=== PATIENT | male | born 1995 | race Caucasian/White ===

== ENCOUNTER 2018-08-06 10:09 | Emergency (ER) | payer SELFPAY ==
[2018-08-06] MEDS ORDERED: LIDOCAINE 1% MPF 2 ML AMPULE ONE (11:20)
--- NOTE | 2018-08-06 11:53 | EDPHYS ---
Physician Documentation [facility] Name: Judson Dunlap Age: 23 yrs Sex: Male : 1995 Arrival Date: 08/06/2018 Time: 10:09 Bed 23 Private MD: ED Physician Stephen Barnes HPI: 08/06 11:12 This 23 yrs old Male presents to ER via Ambulatory with complaints of Lip kb Injury. 11:12 The patient has a laceration related to: working, from a sharp metal object, occurred kb at work, and there are no complicating factors. The injury was accidental. The laceration(s) is(are) located on the philtrum. Onset: The symptoms/episode began/occurred just prior to arrival. Associated signs and symptoms: The patient has no apparent associated signs or symptoms. The patient has not experienced similar symptoms in the past. The patient has not recently seen a physician. Pt was pulling on a wrench, it slipped and hit him in the face. 2cm laceration above upper lip. Historical: - Allergies: 10:30 No Known Allergies; aj1 - Home Meds: 10:30 None [Active]; aj1 - PMHx: 10:30 None; aj1 - PSHx: 10:30 None; aj1 - Immunization history: Last tetanus immunization: < 5 years ago. - Social history:: Smoking status: Patient uses tobacco products, smokes one-half pack cigarettes per day. - Ebola Screening: : Patient denies travel to an Ebola-affected area in the 21 days before illness onset. ROS: 11:12 Constitutional: Negative for fever, chills, and weight loss, Cardiovascular: Negative kb for chest pain, palpitations, and edema, Respiratory: Negative for shortness of breath, cough, wheezing, and pleuritic chest pain, Abdomen/GI: Negative for abdominal pain, nausea, vomiting, diarrhea, and constipation, Back: Negative for injury and pain, MS/Extremity: Negative for injury and deformity, Neuro: Negative for headache, weakness, numbness, tingling, and seizure. 11:12 Skin: Positive for laceration(s). Exam: 11:12 Constitutional: This is a well developed, well nourished patient who is awake, alert, kb and in no acute distress. Head/Face: Normocephalic, atraumatic. Chest/axilla: Normal chest wall appearance and motion. Nontender with no deformity. No lesions are appreciated. Cardiovascular: Regular rate and rhythm with a normal S1 and S2. No gallops, murmurs, or rubs. Normal PMI, no JVD. No pulse deficits. Respiratory: Lungs have equal breath sounds bilaterally, clear to auscultation and percussion. No rales, rhonchi or wheezes noted. No increased work of breathing, no retractions or nasal flaring. Abdomen/GI: Soft, non-tender, with normal bowel sounds. No distension or tympany. No guarding or rebound. No evidence of tenderness throughout. MS/ Extremity: Pulses equal, no cyanosis. Neurovascular intact. Full, normal range of motion. Neuro: Awake and alert, GCS 15, oriented to person, place, time, and situation. Cranial nerves II-XII grossly intact. Motor strength 5/5 in all extremities. Sensory grossly intact. Cerebellar exam normal. Normal gait. 11:12 Skin: injury, laceration(s), the wound is approximately 2 cm(s), that can be described as clean, no foreign body, linear, without bleeding. Vital Signs: 10:27 BP 129 / 69; Pulse 70; Resp 18; Temp 97.2; Pulse Ox 97% on R/A; Weight 92.99 kg (R); aj1 Height 5 ft. 10 in. (177.80 cm) (R); Pain 0/10; 10:27 Body Mass Index 29.41 (92.99 kg, 177.80 cm) aj1 Joseph Coma Score: 10:27 Eye Response: spontaneous(4). Verbal Response: oriented(5). Motor Response: obeys aj1 commands(6). Total: 15. Trauma Score (Adult): 10:27 Eye Response: spontaneous(1); Verbal Response: oriented(1); Motor Response: obeys aj1 commands(2); Systolic BP: > 89 mm Hg(4); Respiratory Rate: 10 to 29 per min(4); Joseph Score: 15; Trauma Score: 12 Laceration: 11:53 Wound Repair of 2cm ( 0.8in ) subcutaneous laceration to philtrum. Linear shaped.. kb Distal neuro/vascular/tendon intact. Anesthesia: Wound infiltrated with 1.5 mls of 1% lidocaine. Wound prep: Moderate cleansing, Wound irrigation with saline by me. Skin closed with 3 6-0 Prolene using interrupted sutures and sterile technique. Dressed with Neosporin. Patient tolerated well. MDM: 10:59 Patient medically screened. kb 11:15 Data reviewed: vital signs, nurses notes. Data interpreted: Pulse oximetry: on room air kb is 97 %. Interpretation: normal. Counseling: I had a detailed discussion with the patient and/or guardian regarding: the historical points, exam findings, and any diagnostic results supporting the discharge/admit diagnosis, the need for outpatient follow up, a family practitioner, to return to the emergency department if symptoms worsen or persist or if there are any questions or concerns that arise at home. 08/06 11:10 Order name: Prolene, Sutures; Complete Time: 11:14 kb 08/06 11:10 Order name: Dressing - Wound; Complete Time: 11:42 kb 08/06 11:10 Order name: Gloves, Sterile; Complete Time: 11:15 kb 08/06 11:10 Order name: Setup Suture Tray; Complete Time: 11:15 kb Administered Medications: 11:41 Drug: Lidocaine (1 %) 1 vials {Note: by SHRUTHI Jin at this time..} Volume: 5 ml; tw2 Route: Infiltration; Disposition: 14:08 Co-signature as Attending Physician, Stephen Barnes MD. rn Disposition: 08/06/18 11:52 Discharged to Home. Impression: Laceration without foreign body of lip. - Condition is Stable. - Discharge Instructions: Facial Laceration, [id number]. - Medication Reconciliation Form, Thank You Letter, Antibiotic Education, Prescription Opioid Use, Work release form form. - Follow up: Emergency Department; When: As needed; Reason: Worsening of condition. Follow up: Private Physician; When: 2 - 3 days; Reason: Recheck today's complaints, Continuance of care, Re-evaluation by your physician. Signatures: Xiomara Aguilar FNP-C FNP-Kellen Sawyer RN RN aj1 Stephen Barnes MD MD rn Wise, Tara, RN RN tw2 Corrections: (The following items were deleted from the chart) 12:00 11:52 08/06/2018 11:52 Discharged to Home. Impression: Laceration without foreign body tw2 of lip. Condition is Stable. Discharge Instructions: Facial Laceration, [id number]. Forms are Work release form, Medication Reconciliation Form, Thank You Letter, Antibiotic Education, Prescription Opioid Use. Follow up: Emergency Department; When: As needed; Reason: Worsening of condition. Follow up: Private Physician; When: 2 - 3 days; Reason: Recheck today's complaints, Continuance of care, Re-evaluation by your physician. kb
--- NOTE | 2018-08-06 11:53 | ER ---
Nurse's Notes [facility] Name: Judson Dunlap Age: 23 yrs Sex: Male : 1995 Arrival Date: 08/06/2018 Time: 10:09 Bed 23 Private MD: Diagnosis: Laceration without foreign body of lip Presentation: 08/06 10:27 Presenting complaint: Patient states: "I was pulling back on a wrench and it went up aj1 and hit my lip. When I felt in my mouth I could feel that it went all the way through" Laceration noted to right upper lip, bleeding lightly. Care prior to arrival: None. Mechanism of Injury: hit his face with a wrench. Trauma event details: Injury occurred in the [facility]. 10:27 Acuity: LIZETTE 4 aj1 10:27 Method Of Arrival: Ambulatory aj1 10:30 Transition of care: patient was not received from another setting of care. Onset of aj1 symptoms was August 06, 2018 at 10:00. Risk Assessment: Do you want to hurt yourself or someone else? Patient reports no desire to harm self or others. Initial Sepsis Screen: Does the patient meet any 2 criteria? No. Patient's initial sepsis screen is negative. Does the patient have a suspected source of infection? No. Patient's initial sepsis screen is negative. Triage Assessment: 10:30 General: Appears in no apparent distress. comfortable, Behavior is calm, cooperative, aj1 appropriate for age. Pain: Denies pain. Neuro: Level of Consciousness is awake, alert, obeys commands. Cardiovascular: Patient's skin is warm and dry. Respiratory: Airway is patent Respiratory effort is even, unlabored, Respiratory pattern is regular, symmetrical. Injury Description: Laceration sustained to right upper lip a small amount of bleeding noted at this time. Trauma Activation: Not Applicable Physician: ED Physician; Name: ; Notified At: ; Arrived At: Physician: General Surgeon; Name: ; Notified At: ; Arrived At: Physician: Radiology; Name: ; Notified At: ; Arrived At: Physician: Respiratory; Name: ; Notified At: ; Arrived At: Physician: Lab; Name: ; Notified At: ; Arrived At: Historical: - Allergies: 10:30 No Known Allergies; aj1 - Home Meds: 10:30 None [Active]; aj1 - PMHx: 10:30 None; aj1 - PSHx: 10:30 None; aj1 - Immunization history: Last tetanus immunization: < 5 years ago. - Social history:: Smoking status: Patient uses tobacco products, smokes one-half pack cigarettes per day. - Ebola Screening: : Patient denies travel to an Ebola-affected area in the 21 days before illness onset. Screenin:27 Abuse screen: Denies threats or abuse. Denies injuries from another. Tuberculosis aj1 screening: No symptoms or risk factors identified. 11:32 Nutritional screening: No deficits noted. Fall Risk None identified. tw2 Primary Survey: 10:27 A: Airway: patent. Breathing/Chest: Respiratory pattern: regular, Respiratory effort: aj1 spontaneous, unlabored. Circulation: Skin color: pink. Disability Alert. Assessment: 11:03 Reassessment:. tw2 11:32 General: Appears in no apparent distress. Behavior is calm, cooperative, appropriate tw2 for age. Neuro: Level of Consciousness is awake, alert, obeys commands, Oriented to person, place, time, situation. Cardiovascular: Denies chest pain, shortness of breath, Capillary refill < 3 seconds Patient's skin is warm and dry. Respiratory: Airway is patent Respiratory effort is even, unlabored, Respiratory pattern is regular, symmetrical. GI: No signs and/or symptoms were reported involving the gastrointestinal system. : No signs and/or symptoms were reported regarding the genitourinary system. EENT: No signs and/or symptoms were reported regarding the EENT system. Derm: No signs and/or symptoms reported regarding the dermatologic system. Musculoskeletal: Range of motion: intact in all extremities. Injury Description: Laceration sustained to philtrum a small amount of bleeding noted at this time. 11:59 Reassessment: Patient appears in no apparent distress at this time. No changes from tw2 previously documented assessment. Patient and/or family updated on plan of care and expected duration. Pain level reassessed. Patient is alert, oriented x 3, equal unlabored respirations, skin warm/dry/pink. Vital Signs: 10:27 BP 129 / 69; Pulse 70; Resp 18; Temp 97.2; Pulse Ox 97% on R/A; Weight 92.99 kg (R); aj1 Height 5 ft. 10 in. (177.80 cm) (R); Pain 0/10; 10:27 Body Mass Index 29.41 (92.99 kg, 177.80 cm) aj1 [place] Coma Score: 10:27 Eye Response: spontaneous(4). Verbal Response: oriented(5). Motor Response: obeys aj1 commands(6). Total: 15. Trauma Score (Adult): 10:27 Eye Response: spontaneous(1); Verbal Response: oriented(1); Motor Response: obeys aj1 commands(2); Systolic BP: > 89 mm Hg(4); Respiratory Rate: 10 to 29 per min(4); Joseph Score: 15; Trauma Score: 12 ED Course: 10:09 Patient arrived in ED. as 10:27 Patient has correct armband on for positive identification. aj1 10:27 Patient maintains SpO2 saturation greater than 95% on room air. aj1 10:28 Triage completed. aj1 10:30 Arm band placed on Patient placed in waiting room, Patient notified of wait time. aj1 10:59 [facility] kb 10:59 Stephen Barnes MD is Attending Physician. kb 11:03 Fatemeh Dick, DINA is Primary Nurse. tw2 11:59 No provider procedures requiring assistance completed. Patient did not have IV access tw2 during this emergency room visit. Administered Medications: 11:41 Drug: Lidocaine (1 %) 1 vials {Note: by SHRUTHI Jin at this time..} Volume: 5 ml; tw2 Route: Infiltration; Outcome: 11:52 Discharge ordered by MD. kb 11:59 Discharged to home ambulatory. tw2 11:59 Condition: stable 11:59 Discharge instructions given to patient, Instructed on discharge instructions, follow up and referral plans. wound care, Demonstrated understanding of instructions, follow-up care, wound care, suture removal 7-10 days 12:00 Patient left the ED. tw2 Signatures: Xiomara Aguilar FNP-C FNP-Kellen Sawyer RN RN aj1 Rosa Crowe as Fatemeh Dick RN RN tw2
== END 2018-08-06 12:00 | disposition home or self-care (01) ==
LOC: ER 10:09
PROC: 0CQ0XZZ Repair Upper Lip, External Approach (ICD-10-PCS; principal; 2018-08-06)
DX: S01.511A Laceration without foreign body of lip, initial encounter (principal); W22.8XXA Striking against or struck by other objects, initial encounter; Y93.89 Activity, other specified; Y92.89 Other specified places as the place of occurrence of the external cause; Y99.8 Other external cause status; F17.210 Nicotine dependence, cigarettes, uncomplicated
CPT/HCPCS: 99284; J2001

== ENCOUNTER 2019-11-29 11:00 | Emergency (ER) | payer SELFPAY ==
[2019-11-29] MEDS ORDERED: TRAMADOL HCL 50 MG TAB ONE (12:12)
--- NOTE | 2019-11-29 12:29 | RAD REPORT ---
EXAM DESCRIPTION: RAD - Hand Right 3 View - 11/29/2019 11:55 am CLINICAL HISTORY: PAIN COMPARISON: No comparisons FINDINGS: Soft tissue swelling is seen along the dorsum of the hand. No fracture seen.
--- NOTE | 2019-11-29 12:33 | ER ---
Nurse's Notes [facility] Name: Judson Dunlap Age: 24 yrs Sex: Male : 1995 Arrival Date: 11/29/2019 Time: 11:01 Bed 18 Private MD: Diagnosis: Contusion of right hand Presentation: 11/28 11:13 Chief complaint: Patient states: punched a wall, hit the stud with right hand , iw occurred yesterday afternoon , pain and swelling to right hand. Coronavirus screen: The patient has NOT traveled to [place] in the past 14 days. Proceed with normal triage procedures. Ebola Screen: Patient negative for fever greater than or equal to 101.5 degrees Fahrenheit, and additional compatible Ebola Virus Disease symptoms Patient denies exposure to infectious person. Patient denies travel to an Ebola-affected area in the 21 days before illness onset. No symptoms or risks identified at this time. Initial Sepsis Screen: Does the patient meet any 2 criteria? No. Patient's initial sepsis screen is negative. Does the patient have a suspected source of infection? No. Patient's initial sepsis screen is negative. Risk Assessment: Do you want to hurt yourself or someone else? Patient reports no desire to harm self or others. 11:13 Method Of Arrival: Ambulatory iw 11:13 Acuity: LIZETTE 4 iw Historical: - Allergies: 11:15 No Known Allergies; iw - Home Meds: 11:15 None [Active]; iw - PMHx: 11:15 None; iw - PSHx: 11:15 None; iw - Immunization history:: Adult Immunizations. - Social history:: Smoking status: Patient reports the use of cigarette tobacco products. Screenin:30 Abuse screen: Denies threats or abuse. Denies injuries from another. Nutritional jl7 screening: No deficits noted. Tuberculosis screening: No symptoms or risk factors identified. Fall Risk None identified. Assessment: 11:30 General: Appears in no apparent distress. uncomfortable, Behavior is calm, cooperative, jl7 appropriate for age. Pain: Complains of pain in right hand Pain currently is 9 out of 10 on a pain scale. Pain began 1 day ago. Is continuous. Neuro: Level of Consciousness is awake, alert, obeys commands, Oriented to person, place, time, situation. Cardiovascular: Patient's skin is warm and dry. Respiratory: Airway is patent Respiratory effort is even, unlabored, Respiratory pattern is regular, symmetrical. Derm: Skin is pink, warm \T\ dry. Musculoskeletal: Swelling present in right hand. 12:45 Reassessment: pt will be discharged after splint is done. jl7 Vital Signs: 11:13 BP 120 / 76; Pulse 85; Resp 16; Temp 98.0; Pulse Ox 100% on R/A; Weight 95.25 kg; iw Height 5 ft. 11 in. (180.34 cm); Pain 9/10; 11:13 Body Mass Index 29.29 (95.25 kg, 180.34 cm) iw ED Course: 11:01 Patient arrived in ED. as 11:15 Triage completed. iw 11:15 Arm band placed on. iw 11:17 Mary Carmen Lemus RN is Primary Nurse. jl7 11:23 Keith Berrios NP is PHCP. pm1 11:23 Hubert Herman MD is Attending Physician. pm1 11:30 Patient has correct armband on for positive identification. Bed in low position. Call jl7 light in reach. Side rails up X 1. 11:55 Hand Right 3 View XRAY In Process Unspecified. EDMS 13:15 Orthoglass splint and sling applied to right hand. jl7 13:20 Patient did not have IV access during this emergency room visit. jl7 Administered Medications: 12:20 Drug: traMADol 50 mg Route: PO; jl7 13:00 Follow up: Response: No adverse reaction jl7 Outcome: 12:32 Discharge ordered by . pm1 13:20 Discharged to home ambulatory. jl7 13:20 Condition: stable 13:20 Discharge instructions given to patient, Instructed on discharge instructions, follow up and referral plans. medication usage, Demonstrated understanding of instructions, follow-up care, medications, Prescriptions given X 1. 13:36 Patient left the ED. jl7 Signatures: Dispatcher [employer] Rosa Barber Irene, RN RN Keith Berrios, [employer]MAN INTERACTIVE MEDIA DIRECTOR pm1 Mary Carmen Lemus RN RN jl7
--- NOTE | 2019-11-29 12:33 | EDPHYS ---
Physician Documentation [facility] Name: Judson Dunlap Age: 24 yrs Sex: Male : 1995 Arrival Date: 11/29/2019 Time: 11:01 Bed 18 Private MD: ED Physician Hubert Herman HPI: 11/28 12:17 This 24 yrs old Male presents to ER via Ambulatory with complaints of Right pm1 Hand Injury. 12:17 The patient or guardian reports pain, swelling, tenderness. The complaints affect the pm1 right hand. Context: The problem was sustained at home, resulted from using own fist to strike, a wall. Onset: The symptoms/episode began/occurred yesterday. Modifying factors: The symptoms are alleviated by nothing, the symptoms are aggravated by movement. Associated signs and symptoms: Pertinent negatives: cyanosis distally, decreased sensation distally, numbness distally, tingling distally. Severity of symptoms: in the emergency department the symptoms are unchanged. The patient has not experienced similar symptoms in the past. It is unknown whether or not the patient has recently seen a physician. Historical: - Allergies: 11:15 No Known Allergies; iw - Home Meds: 11:15 None [Active]; iw - PMHx: 11:15 None; iw - PSHx: 11:15 None; iw - Immunization history:: Adult Immunizations. - Social history:: Smoking status: Patient reports the use of cigarette tobacco products. ROS: 12:17 Constitutional: Negative for fever, chills, and weight loss, Cardiovascular: Negative pm1 for chest pain, palpitations, and edema, Respiratory: Negative for shortness of breath, cough, wheezing, and pleuritic chest pain. 12:17 Skin: Negative for injury, rash, and discoloration, Neuro: Negative for headache, weakness, numbness, tingling, and seizure. 12:17 MS/extremity: Positive for pain, swelling, tenderness, of the medial aspect of right hand, 4th and 5th metacarpal area, Negative for decreased range of motion. 12:17 All other systems are negative. Exam: 12:17 Constitutional: This is a well developed, well nourished patient who is awake, alert, pm1 and in no acute distress. Head/Face: Normocephalic, atraumatic. Chest/axilla: Normal chest wall appearance and motion. Nontender with no deformity. No lesions are appreciated. Cardiovascular: Regular rate and rhythm with a normal S1 and S2. No gallops, murmurs, or rubs. No pulse deficits. Respiratory: Lungs have equal breath sounds bilaterally, clear to auscultation and percussion. No rales, rhonchi or wheezes noted. No increased work of breathing, no retractions or nasal flaring. Skin: Warm, dry with normal turgor. Normal color with no rashes, no lesions, and no evidence of cellulitis. 12:17 Musculoskeletal/extremity: Extremities: grossly normal except: noted in the medial aspect of right hand, 4th and 5th metacarpals: swelling, tenderness, There is no evidence of abrasion, puncture, ROM: intact in all extremities, Circulation is intact in all extremities. Sensation intact. 12:17 Neuro: Orientation: is normal, Motor: is normal, moves all fours. Vital Signs: 11:13 BP 120 / 76; Pulse 85; Resp 16; Temp 98.0; Pulse Ox 100% on R/A; Weight 95.25 kg; iw Height 5 ft. 11 in. (180.34 cm); Pain 9/10; 11:13 Body Mass Index 29.29 (95.25 kg, 180.34 cm) iw MDM: 11:23 Patient medically screened. pm1 12:22 Data reviewed: vital signs. Data interpreted: Pulse oximetry: on room air is 100 %. pm1 Interpretation: normal. 12:32 Counseling: I had a detailed discussion with the patient and/or guardian regarding: the pm1 historical points, exam findings, and any diagnostic results supporting the discharge/admit diagnosis, radiology results, the need for outpatient follow up, to return to the emergency department if symptoms worsen or persist or if there are any questions or concerns that arise at home. 13:50 ED course: PMPAware - no history of prescription pain medication. pm1 11/28 11:24 Order name: Hand Right 3 View XRAY; Complete Time: 12:31 pm1 11/28 12:17 Order name: Splint - Ulnar Gutter pm1 Administered Medications: 12:20 Drug: traMADol 50 mg Route: PO; jl7 13:00 Follow up: Response: No adverse reaction jl7 Disposition: 18:18 Co-signature as Attending Physician, Hubert Herman MD I agree with the assessment and wali plan of care. Disposition: 11/29/19 12:32 Discharged to Home. Impression: Contusion of right hand. - Condition is Stable. - Discharge Instructions: Cast or Splint Care, Adult, Hand Contusion. - Prescriptions for Tramadol 50 mg Oral Tablet - take 1 tablet by ORAL route every 8 hours as needed; 12 tablet. - Medication Reconciliation Form, Thank You Letter, Antibiotic Education, Prescription Opioid Use form. - Follow up: Emergency Department; When: As needed; Reason: Worsening of condition. Follow up: Private Physician; When: 2 - 3 days; Reason: Recheck today's complaints, Continuance of care, Re-evaluation by your physician. - Problem is new. - Symptoms have improved. Signatures: Dispatcher [employer] EDOK Hubert Herman MD MD cha Williams, Irene, RN RN iw Keith Berrios NP [employer]IMMER pm1 Mary Carmen Lemus RN RN jl7 Corrections: (The following items were deleted from the chart) 13:36 12:32 11/29/2019 12:32 Discharged to Home. Impression: Contusion of right hand. jl7 Condition is Stable. Forms are Medication Reconciliation Form, Thank You Letter, Antibiotic Education, Prescription Opioid Use. Follow up: Emergency Department; When: As needed; Reason: Worsening of condition. Follow up: Private Physician; When: 2 - 3 days; Reason: Recheck today's complaints, Continuance of care, Re-evaluation by your physician. Problem is new. Symptoms have improved. pm1
[2019-11-29 13:42] VITALS: BP 120/76; TEMP 98; O2SAT 100
== END 2019-11-29 13:36 | disposition home or self-care (01) ==
LOC: ER 11:00
PROC: 2W3CX1Z Immobilization of Right Lower Arm using Splint (ICD-10-PCS; principal; 2019-11-29)
DX: S60.221A Contusion of right hand, initial encounter (principal); W22.8XXA Striking against or struck by other objects, initial encounter; Y93.9 Activity, unspecified; Y92.9 Unspecified place or not applicable
CPT/HCPCS: 99283

== ENCOUNTER 2020-02-15 08:44 | Emergency (ER) | payer OTHER, SELFPAY ==
[2020-02-15] MEDS ORDERED: BUPIVACAINE 0.5% PF 10 ML VIAL ONE (09:11)
[2020-02-15] MEDS ORDERED: LIDOCAINE 1% 20 ML MDV ONE (09:11)
[2020-02-15] MEDS ORDERED: HYDROCODONE/APAP 10/325 TAB ONE (09:55)
[2020-02-15] MEDS ORDERED: CEFAZOLIN SODIUM 1 GM/VIAL ONE (09:56)
[2020-02-15] MEDS ORDERED: WATER FOR INJ,STERILE 10 ML ONE (09:56)
--- NOTE | 2020-02-15 10:05 | RAD REPORT ---
EXAM DESCRIPTION: RAD - Finger-Thumb Right - 02/15/2020 9:52 am CLINICAL HISTORY: PAIN, nail gun injury to the right thumb COMPARISON: No comparisons TECHNIQUE: A three-view right thumb examination was performed. FINDINGS: A nail extends into the right thumb distal phalanx. A linear fracture plane is present in the midportion of the involved phalanx. No fragmentation of the bone. No angulation or displacement c omponent. The nail does not extend into the joint space. No other foreign body in the soft tissues. IMPRESSION: Nail extends into the right thumb distal phalanx. There is a fracture within the body of the involved phalanx. No fragmentation of the bone and no other foreign body.
--- NOTE | 2020-02-15 10:15 | ER ---
Nurse's Notes [facility] Name: Judson Dunlap Age: 24 yrs Sex: Male : 1995 Arrival Date: 02/15/2020 Time: 08:45 Bed 2 Private MD: Diagnosis: Puncture wound with foreign body of right thumb without damage to nail;Nondisplaced fracture of distal phalanx of right thumb Presentation: 02/14 08:59 Chief complaint: Patient states: nail lodged in R thumb 30 minutes ago. Pt was using a ss nail gun. Believes it's in the bone. No bleeding noted at this time. Coronavirus screen: Proceed with normal triage. Patient denies a cough. Patient denies shortness of breath or difficulty breathing. Patient denies measured and/or subjective temperature greater than 100.4F prior to today's visit. Patient denies travel on a cruise ship or to a country the [facility] currently lists as an affected area. Patient denies contact with known and/or suspected case of COVID-19. Ebola Screen: Patient denies exposure to infectious person. Patient denies travel to an Ebola-affected area in the 21 days before illness onset. Initial Sepsis Screen: Does the patient meet any 2 criteria? No. Patient's initial sepsis screen is negative. Does the patient have a suspected source of infection? No. Patient's initial sepsis screen is negative. Risk Assessment: Do you want to hurt yourself or someone else? Patient reports no desire to harm self or others. Onset of symptoms was February 15, 2020. 08:59 Method Of Arrival: Ambulatory ss 08:59 Acuity: LIZETTE 3 ss Historical: - Allergies: 09:03 No Known Allergies; ss - Home Meds: 09:03 None [Active]; ss - PMHx: 09:03 None; ss - PSHx: 09:03 None; ss - Immunization history:: Adult Immunizations up to date. - Social history:: Smoking status: Patient denies any tobacco usage or history of. Screenin:04 Abuse screen: Denies threats or abuse. Denies injuries from another. Nutritional ss screening: No deficits noted. Tuberculosis screening: Never had TB. Fall Risk None identified. Assessment: 09:04 General: Appears uncomfortable, Behavior is calm, cooperative. Pain: Complains of pain em in palmar aspect of proximal phalanx of right thumb Pain currently is 10 out of 10 on a pain scale. Pain began 1 hour ago. Neuro: Level of Consciousness is awake, alert, obeys commands, Oriented to person, place, time, situation, Appropriate for age. Cardiovascular: Capillary refill < 3 seconds Patient's skin is warm and dry. Respiratory: Airway is patent Respiratory effort is even, unlabored, Respiratory pattern is regular, symmetrical. Derm: Skin is intact, is healthy with good turgor, Skin is pink, warm \T\ dry. Musculoskeletal: Capillary refill < 3 seconds, Range of motion: intact in all extremities. Injury Description: Puncture sustained to palmar aspect of proximal phalanx of right thumb is nail through the right thumb but did not exit, no bleeding or swelling noted was sustained 30-60 minutes ago. 09:23 Reassessment: Patient appears in no apparent distress at this time. x-ray at bedside. em Vital Signs: 08:59 BP 119 / 84; Pulse 73; Resp 16; Temp 97.2(TE); Pulse Ox 98% ; Weight 97.52 kg; Height 5 ss ft. 11 in. (180.34 cm); Pain 10/10; 08:59 Body Mass Index 29.99 (97.52 kg, 180.34 cm) ED Course: 08:45 Patient arrived in ED. mr 08:58 Hubert Douglas PA is PHCP. cp 08:58 Stephen Barnes MD is Attending Physician. cp 09:02 Dwain Olvera, RN is Primary Nurse. em 09:03 Triage completed. ss 09:03 Arm band placed on right wrist. ss 09:04 Patient has correct armband on for positive identification. Bed in low position. Call ss light in reach. 09:53 XRAY Finger-Thumb RIGHT In Process Unspecified. EDMS 10:13 Andres Fernández MD is Referral Physician. cp 10:35 Wound care: to puncture located on palmar aspect of proximal phalanx of right thumb was em dressed with Neosporin, Kerlix, Patient tolerated well. 10:35 No provider procedures requiring assistance completed. Patient did not have IV access em during this emergency room visit. Administered Medications: 09:15 Drug: Lidocaine (1 %) 10 ml {Note: administered by TSERING Gaspar.} Volume: 20 ml; Route: em Infiltration; Site: affected area; 09:30 Follow up: Response: No adverse reaction; Marked relief of symptoms; Pain is decreased em 09:15 Drug: Marcaine (0.5 %) 10 ml {Note: administered by TSERING Gaspar.} Volume: 10 ml; Route: em Infiltration; Site: affected area; 09:30 Follow up: Response: No adverse reaction; Marked relief of symptoms; Pain is decreased em 09:28 Not Given (Other Intervention Used; pt had tetanus in 2018): Tetanus-Diphtheria em Toxoid Adult 0.5 ml IM once 09:50 Drug: [place] 10 mg-325 mg 1 tabs Route: PO; em 10:34 Follow up: Response: No adverse reaction; Marked relief of symptoms; Pain is decreased em 10:17 Drug: Ancef 1 grams Route: IM; Site: left deltoid; em 10:35 Follow up: Response: No adverse reaction em Outcome: 10:15 Discharge ordered by MD. cp 10:35 Discharged to home ambulatory. em 10:35 Condition: good 10:35 Discharge instructions given to patient, Instructed on discharge instructions, follow up and referral plans. medication usage, wound care, Demonstrated understanding of instructions, follow-up care, medications, wound care, Prescriptions given X 2. 10:36 Patient left the ED. em Signatures: Dispatcher [employer] YANCI BeaulieuaLuanne Edgar, RN RN em Smirch, Shelby, RN RN Hubert Douglas PA PA cp
--- NOTE | 2020-02-15 10:16 | EDPHYS ---
Physician Documentation [facility] Name: Judson Dunlap Age: 24 yrs Sex: Male : 1995 Arrival Date: 02/15/2020 Time: 08:45 Bed 2 Private MD: ED Physician Stephen Barnes HPI: 02/14 09:05 This 24 yrs old Male presents to ER via Ambulatory with complaints of Nail in cp Thumb. Historical: - Allergies: 09:03 No Known Allergies; ss - Home Meds: 09:03 None [Active]; ss - PMHx: 09:03 None; ss - PSHx: 09:03 None; ss - Immunization history:: Adult Immunizations up to date. - Social history:: Smoking status: Patient denies any tobacco usage or history of. ROS: 09:15 MS/extremity: Positive for injury or acute deformity, pain, puncture, tenderness, of cp the dorsal aspect of distal phalanx of right thumb, noted protruding nail, Negative for decreased range of motion. 09:15 Neuro: Negative for numbness. cp 09:15 All other systems are negative. Exam: 09:20 Constitutional: The patient appears in no acute distress, alert, awake, well developed, cp well nourished, uncomfortable. 09:20 Musculoskeletal/extremity: Extremities: grossly normal except: noted in the dorsal cp aspect of distal phalanx of right thumb: pain, puncture, swelling, tenderness, protruding nail, ROM: limited passive range of motion due to pain, in the right thumb, Perfusion: the extremity is normally perfused throughout, Sensation intact. Tendon exam: specific tendon testing normal through active and passive range of motion Vital Signs: 08:59 BP 119 / 84; Pulse 73; Resp 16; Temp 97.2(TE); Pulse Ox 98% ; Weight 97.52 kg; Height 5 ss ft. 11 in. (180.34 cm); Pain 10/10; 08:59 Body Mass Index 29.99 (97.52 kg, 180.34 cm) ss Procedures: 10:15 Foreign Body Removal: a nail, from the dorsal aspect of distal phalanx of right thumb, cp by digital block of right thumb with 8 ccs of mixture 1% lidocaine w/o epi and 0.5% marcaine and then manual manipulation with pliers. The patient tolerated the removal well. 10:15 Splinting: using finger splint, metal splint. applied by nurse. Examined by me, post cp splint application: neurovascular intact, Patient tolerated well. MDM: 09:00 Patient medically screened. cp 09:20 Differential diagnosis: dislocation, open fracture, contusion. cp 10:08 Physician consultation: Andres Fernández MD was called at 10:05, was contacted at 10:05, regarding patient's condition, outpatient follow-up, 02/17/2020 and will see patient in office. 10:15 Data reviewed: vital signs, nurses notes, radiologic studies, plain films, I have cp discussed the patient's presentation/case with the attending Emergency Department Physician; and as a result, I will discharge patient. 10:15 Response to treatment: the patient's symptoms have markedly improved after treatment, cp and as a result, I will discharge patient. 10:15 ED course: Wound cleaned and irrigated using 2 liters saline, nail removed as noted and cp thumb splinted and dressed. Patient instructed on need for f/u with hand surgery. 02/14 09:00 Order name: XRAY Finger-Thumb RIGHT; Complete Time: 10:08 cp 02/14 10:08 Order name: Splint - Finger; Complete Time: 10:22 cp 02/14 10:08 Order name: Wound dressing; Complete Time: 10:22 cp Administered Medications: 09:15 Drug: Lidocaine (1 %) 10 ml {Note: administered by PA. Hubert} Volume: 20 ml; Route: em Infiltration; Site: affected area; 09:30 Follow up: Response: No adverse reaction; Marked relief of symptoms; Pain is decreased em 09:15 Drug: Marcaine (0.5 %) 10 ml {Note: administered by PA. Hubert} Volume: 10 ml; Route: em Infiltration; Site: affected area; 09:30 Follow up: Response: No adverse reaction; Marked relief of symptoms; Pain is decreased em 09:28 Not Given (Other Intervention Used; pt had tetanus in 2018): Tetanus-Diphtheria em Toxoid Adult 0.5 ml IM once 09:50 Drug: [place] 10 mg-325 mg 1 tabs Route: PO; em 10:34 Follow up: Response: No adverse reaction; Marked relief of symptoms; Pain is decreased em 10:17 Drug: Ancef 1 grams Route: IM; Site: left deltoid; em 10:35 Follow up: Response: No adverse reaction em Disposition: 10:30 Chart complete. cp 11:13 Co-signature as Attending Physician, Stephen Barnes MD. rn Disposition: 02/15/20 10:15 Discharged to Home. Impression: Puncture wound with foreign body of right thumb without damage to nail, Nondisplaced fracture of distal phalanx of right thumb. - Condition is Stable. - Discharge Instructions: Finger Fracture, Puncture Wound. - Prescriptions for Keflex 500 mg Oral Capsule - take 1 capsule by ORAL route every 6 hours for 10 days; 40 capsule. Tylenol- Codeine #3 300-30 mg Oral Tablet - take 2 tablets by ORAL route every 6 hours As needed; 20 tablet. - Medication Reconciliation Form, Thank You Letter, Antibiotic Education, Prescription Opioid Use form. - Follow up: Andres Fernández MD; When: 02/17/2020; Reason: Wound Recheck. - Problem is new. - Symptoms have improved. Signatures: Dispatcher [employer] Dwain Plummer RN Stephen Lopez MD MD rn Smirch, Shelby, RN RN ss Hubert Douglas PA PA cp Bel Barrera RN RN Corrections: (The following items were deleted from the chart) 10:36 10:15 02/15/2020 10:15 Discharged to Home. Impression: Puncture wound with foreign body em of right thumb without damage to nail; Nondisplaced fracture of distal phalanx of right thumb. Condition is Stable. Forms are Medication Reconciliation Form, Thank You Letter, Antibiotic Education, Prescription Opioid Use. Follow up: Andres Fernández; When: 02/17/2020; Reason: Wound Recheck. Problem is new. Symptoms have improved. cp
[2020-02-15 10:44] VITALS: BP 119/84; TEMP 97.2; O2SAT 98
== END 2020-02-15 10:36 | disposition home or self-care (01) ==
LOC: ER 08:44
DX: S62.524A Nondisplaced fracture of distal phalanx of right thumb, initial encounter for closed fracture (principal); S61.041A Puncture wound with foreign body of right thumb without damage to nail, initial encounter; W29.4XXA Contact with nail gun, initial encounter; Y93.9 Activity, unspecified; Y92.9 Unspecified place or not applicable
CPT/HCPCS: 96372; 99284; J0690

== ENCOUNTER → 2023-12-16 | Emergency (ER) | payer OTHER ==
[~2023-12-16] MED LIST: IBUPROFEN 200 MG TAB PO ONE; IBUPROFEN 400 MG TAB ONE
--- NOTE | 2023-12-16 12:11 | RAD REPORT ---
EXAM DESCRIPTION: RAD - Ankle Left 3 View - 12/16/2023 11:58 am CLINICAL HISTORY: PAIN COMPARISON: No comparisons FINDINGS/IMPRESSION: No left ankle fracture or malalignment. Question well corticated fragment at th e fifth metatarsal which could be from a remote fracture. Correlate with site of pain. Could consider dedicated left foot radiograph to further evaluate.
--- NOTE | 2023-12-16 12:50 | EDPHYS ---
Physician Documentation [facility] Name: Judson Dunlap Age: 28 yrs Sex: Male : 1995 Arrival Date: 12/16/2023 Time: 10:54 Bed 11 Private MD: ED Physician David Mcghee HPI: 12/15 11:23 This 28 yrs old Male presents to ER via Wheelchair with complaints of Foot Injury. ms3 11:23 28-year-old male with no past medical history presents to the emergency department for ms3 left ankle pain status post rolling his ankle while ice-skating yesterday. Patient states the pain is a 4/10 and throbbing. Patient states the pain is worse with walking and he rates the pain a 10/10. Patient denies alleviating factors. Patient denies taking medications for pain prior to arrival. Historical: - Allergies: 11:11 No Known Allergies; ph - PMHx: 11:11 None; ph - PSHx: 11:11 None; ph - Immunization history:: Adult Immunizations unknown. - Social history:: Smoking status: Reported history of juuling and/or vaping. ROS: 11:23 MS/extremity: Positive for pain, of the left lateral ankle, ms3 11:23 Constitutional: Negative for fever, and chills. Neck: Negative for injury, pain, and swelling, Cardiovascular: Negative for chest pain, and palpitations. Respiratory: Negative for shortness of breath, cough, wheezing, and pleuritic chest pain, Abdomen/GI: Negative for abdominal pain, nausea, vomiting, diarrhea, and constipation, Exam: 11:23 Constitutional: This is a well developed, well nourished patient who is awake, alert, ms3 and in no acute distress. Head/Face: Normocephalic, atraumatic. Chest/axilla: Normal chest wall appearance and motion. Nontender with no deformity. Cardiovascular: Regular rate and rhythm with a normal S1 and S2. No gallops, murmurs, or rubs. Normal PMI, no JVD. No pulse deficits. Respiratory: Lungs have equal breath sounds bilaterally, clear to auscultation and percussion. No rales, rhonchi or wheezes noted. No increased work of breathing, no retractions or nasal flaring. Abdomen/GI: Soft, non-tender, with normal bowel sounds. No distension or tympany. No guarding or rebound. No evidence of tenderness throughout. Skin: Warm, dry with normal turgor. Normal color with no rashes, no lesions, and no evidence of cellulitis. 11:23 Musculoskeletal/extremity: Extremities: noted in the left lateral ankle: pain, tenderness, Vital Signs: 11:08 BP 131 / 84; Pulse 76; Resp 18; Temp 98.2; Pulse Ox 99% on R/A; Weight 92.99 kg; Height ph 5 ft. 11 in. ; 12:07 BP 121 / 79; Pulse 72; Resp 16; Pulse Ox 99% on R/A; tl4 13:25 BP 118 / 72; Pulse 70; Resp 18; Temp 98.7(TE); Pulse Ox 98% on R/A; Pain 6/10; tl4 11:08 Body Mass Index 28.59 (92.99 kg, 180.34 cm) ph 13:25 Pain Scale: Adult tl4 MDM: 11:14 Patient medically screened. ms3 11:23 Differential diagnosis: fracture, sprain. ms3 12:50 Data reviewed: vital signs, nurses notes, radiologic studies, and as a result, I will ms3 discharge patient. I considered the following discharge prescriptions or medication management in the emergency department Medications were administered in the Emergency Department. See MAR. Counseling: I had a detailed discussion with the patient and/or guardian regarding the historical points, exam findings, and any diagnostic results supporting the discharge/admit diagnosis, radiology results, the need for outpatient follow up, to return to the emergency department if symptoms worsen or persist or if there are any questions or concerns that arise at home. Special discussion: I discussed with the patient/guardian in detail that at this point there is no indication for admission to the hospital. It is understood, however, that if the symptoms persist or worsen the patient needs to return immediately for re-evaluation. ED course: Discussed x-ray findings with patient. Patient to follow-up with primary care physician in 2 to 3 days. Patient understands and agrees with plan. All questions were answered. Return precautions discussed include worsening symptoms, or any other concerns. 12/15 11:14 Order name: Ankle Left 3 View XRAY; Complete Time: 12:35 ms3 12/15 12:51 Order name: Crutches; Complete Time: 13:15 ms3 12/15 12:51 Order name: Ankle Splint: Aircast; Complete Time: 13:15 ms3 Administered Medications: 12:04 Drug: Ibuprofen PO 600 mg PO once Route: PO; tl4 12:46 Follow up: Response: No adverse reaction; Pain is decreased tl4 Disposition Summary: 12/16/23 12:50 Discharge Ordered Notes: Location: Home ms3 Condition: Stable ms3 Diagnosis - Pain in left ankle and joints of left foot ms3 Followup: ms3 - With: Blaine Verma MD - When: 1 week - Reason: Recheck today's complaints Discharge Instructions: - Discharge Summary Sheet ms3 - Musculoskeletal Pain ms3 Forms: - Medication Reconciliation Form ms3 - Thank You Letter ms3 - Antibiotic Education ms3 - Prescription Opioid Use ms3 - Patient Portal Instructions ms3 - Leadership Thank You Letter ms3 Prescriptions: - Ibuprofen 600 mg Oral Tablet - take 1 tablet ORAL route every 6 hours As needed take with food; 30 tablet; ms3 Refills: 0, Product Selection Permitted Signatures: Dispatcher [employer] Juana Oden, RN RN David Mcghee DO DO ms3 Estevan Coello RN RN tl4
--- NOTE | 2023-12-16 12:50 | ER ---
Nurse's Notes [facility] Name: Judson Dunlap Age: 28 yrs Sex: Male : 1995 Arrival Date: 12/16/2023 Time: 10:54 Bed 11 Private MD: Diagnosis: Pain in left ankle and joints of left foot Presentation: 12/15 11:08 Chief complaint: Patient states: L ankle pain after rolling L foot while ice skating ph yesterday. Coronavirus screen: Vaccine status: Patient reports receiving the 2nd dose of the covid vaccine. Ebola Screen: No symptoms or risks identified at this time. Initial Sepsis Screen: Does the patient meet any 2 criteria? No. Patient's initial sepsis screen is negative. Does the patient have a suspected source of infection? No. Patient's initial sepsis screen is negative. Risk Assessment: Do you want to hurt yourself or someone else? Patient reports no desire to harm self or others. Onset of symptoms was December 16, 2023. 11:08 Method Of Arrival: Wheelchair ph 11:08 Acuity: LIZETTE 4 ph Triage Assessment: 11:11 General: Appears in no apparent distress. Behavior is calm, cooperative. Pain: ph Complains of pain in left lateral ankle. Musculoskeletal: Circulation, motion, and sensation intact. Range of motion: intact in all extremities. 13:26 Injury Description: Bruise sustained to left lateral ankle. tl4 Historical: - Allergies: 11:11 No Known Allergies; ph - PMHx: 11:11 None; ph - PSHx: 11:11 None; ph - Immunization history:: Adult Immunizations unknown. - Social history:: Smoking status: Reported history of juuling and/or vaping. Screenin:13 [facility] ED Fall Risk Assessment (Adult) History of falling in the last 3 months, ph including since admission No falls in past 3 months (0 pts) Confusion or Disorientation No (0 pts) Intoxicated or Sedated No (0 pts) Impaired Gait Yes (1 pt) Mobility Assist Device Used No (0 pt) Altered Elimination No (0 pt) Score/Fall Risk Level 0 - 2 = Low Risk Oriented to surroundings, Maintained a safe environment, Educated pt \T\ family on fall prevention, incl call for assistance when getting out of bed, Hourly rounding (assess needs \T\ fall precautionary measures) done. Abuse screen: Denies threats or abuse. Denies injuries from another. Nutritional screening: No deficits noted. Tuberculosis screening: No symptoms or risk factors identified. Assessment: 12:05 General: Appears in no apparent distress. Behavior is calm, cooperative. Pain: tl4 Complains of pain in left lateral ankle. Neuro: No deficits noted. Level of Consciousness is awake, alert, obeys commands, Oriented to person, place, time, situation, Speech is normal, Facial symmetry appears normal. Cardiovascular: No deficits noted. Capillary refill < 3 seconds Patient's skin is warm and dry. Respiratory: No deficits noted. Airway is patent Respiratory effort is even, unlabored, Respiratory pattern is regular, Breath sounds are clear bilaterally. GI: No deficits noted. No signs and/or symptoms were reported involving the gastrointestinal system. : No deficits noted. No signs and/or symptoms were reported regarding the genitourinary system. EENT: No deficits noted. No signs and/or symptoms were reported regarding the EENT system. Derm: No deficits noted. No signs and/or symptoms reported regarding the dermatologic system. Musculoskeletal: Circulation, motion, and sensation intact. Capillary refill < 3 seconds, in left toes. Range of motion: limited in left ankle. Vital Signs: 11:08 BP 131 / 84; Pulse 76; Resp 18; Temp 98.2; Pulse Ox 99% on R/A; Weight 92.99 kg; Height ph 5 ft. 11 in. ; 12:07 BP 121 / 79; Pulse 72; Resp 16; Pulse Ox 99% on R/A; tl4 13:25 BP 118 / 72; Pulse 70; Resp 18; Temp 98.7(TE); Pulse Ox 98% on R/A; Pain 6/10; tl4 11:08 Body Mass Index 28.59 (92.99 kg, 180.34 cm) ph 13:25 Pain Scale: Adult tl4 ED Course: 10:56 Patient arrived in ED. mr 11:07 David Mcghee DO is Attending Physician. ms3 11:11 Triage completed. ph 11:12 Arm band placed on Patient placed in waiting room, Patient notified of wait time. X-ray ph ordered. 11:13 Patient has correct armband on for positive identification. ph 12:00 Ankle Left 3 View XRAY In Process Unspecified. EDMS 12:04 Logdahl, Estevan, RN is Primary Nurse. tl4 12:50 Blaine Verma MD is Referral Physician. ms3 13:15 Provided Education on: ed process. Door closed. Noise minimized. Lights dimmed. Moved tl4 to private room. Ice pack to injury. 13:15 No provider procedures requiring assistance completed. Patient did not have IV access tl4 during this emergency room visit. 13:15 Crutch training done. Air stirrup applied to left ankle. tl4 Administered Medications: 12:04 Drug: Ibuprofen PO 600 mg PO once Route: PO; tl4 12:46 Follow up: Response: No adverse reaction; Pain is decreased tl4 Medication: 11:13 VIS not applicable for this client. ph Outcome: 12:50 Discharge ordered by . ms3 13:25 Discharged to tl4 13:25 Discharged to home ambulatory, with crutches, with family, tl4 13:25 Condition: stable 13:25 Discharge instructions given to patient, Instructed on discharge instructions, follow up and referral plans. medication usage, crutch walking, ankle stirrup splint use Demonstrated understanding of instructions, follow-up care, medications, crutch walking, splint care, Prescriptions given X 1, 13:26 Patient left the ED. tl4 Signatures: Dispatcher [employer] EDWA Luanne Ngo, Reg Reg mr Juana York, RN RN David Mcghee, DO ms3 Estevan Coello, RN RN tl4
[2023-12-16 13:53] VITALS: BP 118/72; TEMP 98.7; O2SAT 98
== END ==
LOC: ER 10:54
DX: M25.572 Pain in left ankle and joints of left foot (principal)
CPT/HCPCS: 99284

== ENCOUNTER → 2023-12-20 | Emergency (ER) | payer OTHER ==
[~2023-12-20] MED LIST changes: +HYDROCODONE/APAP 7.5/325 MG TAB ONE; -IBUPROFEN 200 MG TAB PO ONE
--- NOTE | 2023-12-20 10:29 | EDPHYS ---
Physician Documentation [facility] Name: Judson Dunlap Age: 28 yrs Sex: Male : 1995 Arrival Date: 12/20/2023 Time: : Bed 20 Private MD: ED Physician Hubert Herman HPI: 12/19 10:21 This 28 yrs old Male presents to ER via Ambulatory with complaints of Leg wali Pain. 10:21 The patient presents with decreased range of motion, pain, swelling. The complaints wali affect the lateral aspect of left calf, left lateral ankle, lateral aspect of left foot, left atkinson and anterior aspect of left ankle. Context: The problem was sustained at a sports field or court. Onset: The symptoms/episode began/occurred 3 day(s) ago. Modifying factors: The symptoms are alleviated by nothing. the symptoms are aggravated by nothing. Associated signs and symptoms: The patient has no apparent associated signs or symptoms. Treatment prior to arrival includes: elevation of the extremity, icing the affected extremity. Severity of symptoms: At their worst the symptoms were mild, in the emergency department the symptoms are unchanged. The patient has not experienced similar symptoms in the past. Historical: - Allergies: 09:38 No Known Allergies; aa5 - PMHx: 09:38 None; aa5 - Immunization history:: Adult Immunizations up to date. - Social history:: Smoking status: Patient reports the use of cigarette tobacco products. - Family history:: not pertinent. ROS: 10:21 Constitutional: Negative for fever, chills, and weight loss, Eyes: Negative for injury, wali pain, redness, and discharge, ENT: Negative for injury, pain, and discharge, Neck: Negative for injury, pain, and swelling, Cardiovascular: Negative for chest pain, palpitations, and edema, Respiratory: Negative for shortness of breath, cough, wheezing, and pleuritic chest pain, Abdomen/GI: Negative for abdominal pain, nausea, vomiting, diarrhea, and constipation, Back: Negative for injury and pain, : Negative for injury, bleeding, discharge, and swelling, Skin: Negative for injury, rash, and discoloration, Neuro: Negative for headache, weakness, numbness, tingling, and seizure, Psych: Negative for depression, anxiety, suicide ideation, homicidal ideation, and hallucinations, Allergy/Immunology: Negative for hives, rash, and allergies, Endocrine: Negative for neck swelling, polydipsia, polyuria, polyphagia, and marked weight changes, Hematologic/Lymphatic: Negative for swollen nodes, abnormal bleeding, and unusual bruising, 10:21 MS/extremity: Positive for decreased range of motion, pain, swelling, tenderness, of the lateral aspect of left calf, left lateral ankle, lateral aspect of left foot, left atkinson and anterior aspect of left ankle, Exam: 10:21 Constitutional: This is a well developed, well nourished patient who is awake, alert, wali and in no acute distress. Head/Face: Normocephalic, atraumatic. Eyes: Pupils equal round and reactive to light, extra-ocular motions intact. Lids and lashes normal. Conjunctiva and sclera are non-icteric and not injected. Cornea within normal limits. Periorbital areas with no swelling, redness, or edema. ENT: Nares patent. No nasal discharge, no septal abnormalities noted. Tympanic membranes are normal and external auditory canals are clear. Oropharynx with no redness, swelling, or masses, exudates, or evidence of obstruction, uvula midline. Mucous membranes moist. Neck: Trachea midline, no thyromegaly or masses palpated, and no cervical lymphadenopathy. Supple, full range of motion without nuchal rigidity, or vertebral point tenderness. No Meningismus. Chest/axilla: Normal chest wall appearance and motion. Nontender with no deformity. No lesions are appreciated. Cardiovascular: Regular rate and rhythm with a normal S1 and S2. No gallops, murmurs, or rubs. Normal PMI, no JVD. No pulse deficits. Respiratory: Lungs have equal breath sounds bilaterally, clear to auscultation and percussion. No rales, rhonchi or wheezes noted. No increased work of breathing, no retractions or nasal flaring. Abdomen/GI: Soft, non-tender, with normal bowel sounds. No distension or tympany. No guarding or rebound. No evidence of tenderness throughout. Back: No spinal tenderness. No costovertebral tenderness. Full range of motion. Male : Normal genitalia with no discharge or lesions. Skin: Warm, dry with normal turgor. Normal color with no rashes, no lesions, and no evidence of cellulitis. Neuro: Awake and alert, GCS 15, oriented to person, place, time, and situation. Cranial nerves II-XII grossly intact. Motor strength 5/5 in all extremities. Sensory grossly intact. Cerebellar exam normal. Normal gait. Psych: Awake, alert, with orientation to person, place and time. Behavior, mood, and affect are within normal limits. 10:21 Musculoskeletal/extremity: Extremities: grossly normal except: decreased ROM, pain, swelling, tenderness, ROM: limited active range of motion due to pain, limited passive range of motion due to pain, Circulation is intact in all extremities. Compartment Syndrome exam of affected extremity: is normal. Weight bearing: is unable to bear weight, DVT Exam: negative Homans' sign noted on exam, no appreciated bluish discoloration, no erythema, no increased warmth, pain, swelling, tenderness, Vital Signs: 09:48 BP 125 / 82; Pulse 74; Resp 18 S; Temp 98.2(TE); Pulse Ox 100% on R/A; Weight 91.17 kg aa5 (R); Height 5 ft. 10 in. (R); 10:00 BP 122 / 69; Pulse 69; Resp 18; Pulse Ox 99% on R/A; db 09:48 Body Mass Index 28.84 (91.17 kg, 177.8 cm) aa5 MDM: 09:25 Patient medically screened. [facility] 12/19 09:55 Order name: Tib Fib Left XRAY [facility] 12/19 09:55 Order name: Foot Left 3 View XRAY [facility] 12/19 09:55 Order name: Ankle Left 3 View XRAY [facility] 12/19 09:55 Order name: Ice pack; Complete Time: 09:59 [facility] 12/19 10:27 Order name: Walking boot; Complete Time: 11:15 wali Administered Medications: 10:13 Drug: Ibuprofen PO 800 mg PO once Route: PO; db 11:23 Follow up: Response: No adverse reaction db 11:00 Drug: Hydrocodone-Acetaminophen PO (7.5 mg-325 mg) 2 tabs PO once Route: PO; db 11:23 Follow up: Response: No adverse reaction db Disposition Summary: 12/20/23 10:29 Discharge Ordered Notes: Location: Home wali Problem: new wali Symptoms: have improved wali Condition: Stable wali Diagnosis - Sprain of calcaneofibular ligament of left ankle wali - Sprain of other ligament of left ankle wali - Sprain of unspecified ligament of left ankle, initial encounter wali - Other sprain of left foot wali Followup: wail - With: Private Physician - When: 2 - 3 days - Reason: Recheck today's complaints, Continuance of care, Re-evaluation by your physician Followup: wali - With: Edwin Sesay MD - When: 2 - 3 days - Reason: Recheck today's complaints, Continuance of care, Re-evaluation by your physician Discharge Instructions: - Discharge Summary Sheet wali - Ankle Sprain wali - Foot Sprain wali - Ankle Sprain, [id number] wali Forms: - Medication Reconciliation Form wali - Thank You Letter wali - Antibiotic Education wali - Prescription Opioid Use wali - Patient Portal Instructions wali - Leadership Thank You Letter wali Prescriptions: - Diclofenac Sodium 75 mg Oral tablet, delayed release (enteric coated) - take 1 tablet ORAL route 2 times per day; 20 tablet; Refills: 0, Product wali Selection Permitted Signatures: Dispatcher [employer] Hubert Reyna MD MD cha Calderon, Audri, RN RN aa5 Tali Berry RN RN db
--- NOTE | 2023-12-20 10:29 | ER ---
Nurse's Notes [facility] Name: Judson Dunlap Age: 28 yrs Sex: Male : 1995 Arrival Date: 12/20/2023 Time: : Bed 20 Private MD: Diagnosis: Sprain of calcaneofibular ligament of left ankle;Sprain of other ligament of left ankle;Sprain of unspecified ligament of left ankle, initial encounter;Other sprain of left foot Presentation: 12/19 09:38 Chief complaint: Chief complaint: Patient states: pain to left ankle and left atkinson, pt aa5 reports being seen here recently in ER. 09:48 Coronavirus screen: At this time, the client does not indicate any symptoms associated aa5 with coronavirus-19. Ebola Screen: Patient denies travel to an Ebola-affected area in the 21 days before illness onset. Initial Sepsis Screen: Does the patient meet any 2 criteria? No. Patient's initial sepsis screen is negative. Does the patient have a suspected source of infection? No. Patient's initial sepsis screen is negative. Risk Assessment: Do you want to hurt yourself or someone else? Patient reports no desire to harm self or others. Onset of symptoms was November 2023. 09:48 Acuity: LIZETTE 4 aa5 09:48 Method Of Arrival: Ambulatory aa5 Historical: - Allergies: 09:38 No Known Allergies; aa5 - PMHx: 09:38 None; aa5 - Immunization history:: Adult Immunizations up to date. - Social history:: Smoking status: Patient reports the use of cigarette tobacco products. - Family history:: not pertinent. Screenin:20 [facility] ED Fall Risk Assessment (Adult) History of falling in the last 3 months, db including since admission Yes- single mechanical fall (1 pt) Confusion or Disorientation No (0 pts) Intoxicated or Sedated No (0 pts) Impaired Gait No (0 pts) Mobility Assist Device Used No (0 pt) Altered Elimination No (0 pt) Score/Fall Risk Level 0 - 2 = Low Risk Oriented to surroundings, Maintained a safe environment. Abuse screen: Denies threats or abuse. Denies injuries from another. Nutritional screening: No deficits noted. Tuberculosis screening: No symptoms or risk factors identified. Assessment: 11:20 Reassessment: Patient appears in no apparent distress at this time. Patient and/or db family updated on plan of care and expected duration. Pain level reassessed. Patient is alert, oriented x 3, equal unlabored respirations, skin warm/dry/pink. General: Appears in no apparent distress. comfortable, Behavior is calm, cooperative. Pain: Complains of pain in left leg. Neuro: Level of Consciousness is awake, alert, obeys commands, Oriented to person, place, time, situation. Respiratory: Airway is patent Respiratory effort is even, unlabored, Respiratory pattern is regular, symmetrical. Musculoskeletal: Reports pain in left leg. Vital Signs: 09:48 BP 125 / 82; Pulse 74; Resp 18 S; Temp 98.2(TE); Pulse Ox 100% on R/A; Weight 91.17 kg aa5 (R); Height 5 ft. 10 in. (R); 10:00 BP 122 / 69; Pulse 69; Resp 18; Pulse Ox 99% on R/A; db 09:48 Body Mass Index 28.84 (91.17 kg, 177.8 cm) aa5 ED Course: 09:24 Patient arrived in ED. mr 09:25 Hubert Herman MD is Attending Physician. wali 09:38 Arm band placed on Patient placed in an exam room, on a stretcher. aa5 09:50 Triage completed. aa5 10:13 Tib Fib Left XRAY In Process Unspecified. EDMS 10:13 Foot Left 3 View XRAY In Process Unspecified. EDMS 10:13 Ankle Left 3 View XRAY In Process Unspecified. EDMS 10:13 Tali Berry RN is Primary Nurse. db 10:28 Edwin Sesay MD is Referral Physician. wali 11:20 Patient has correct armband on for positive identification. Call light in reach. Side db rails up X 1. Provided Education on: ORTHO. Pulse ox on. NIBP on. 11:20 Patient did not have IV access during this emergency room visit. LEFT ORTHO WALKING db BOOT. Administered Medications: 10:13 Drug: Ibuprofen PO 800 mg PO once Route: PO; db 11:23 Follow up: Response: No adverse reaction db 11:00 Drug: Hydrocodone-Acetaminophen PO (7.5 mg-325 mg) 2 tabs PO once Route: PO; db 11:23 Follow up: Response: No adverse reaction db Medication: 11:20 VIS not applicable for this client. db Outcome: 10:29 Discharge ordered by . wali 11:20 Discharged to home ambulatory, db 11:20 Condition: stable 11:20 Discharge instructions given to patient, Instructed on discharge instructions, follow up and referral plans. Prescriptions given X 1, 11:23 Patient left the ED. db Signatures: Dispatcher [employer] EDHubert Ramírez MD MD cha Rivera Luanne, Reg Reg mr Danuta Mack, RN RN aa5 Tali Berry RN RN db Corrections: (The following items were deleted from the chart) 09:48 09:38 Chief complaint: aa5 aa5 09:50 09:38 Chief complaint: aa5 aa5
[2023-12-20 11:33] VITALS: BP 122/69; TEMP 98.2; O2SAT 99
--- NOTE | 2023-12-20 12:00 | RAD REPORT ---
EXAM DESCRIPTION: RADTib Fib Left12/20/2023 10:11 am CLINICAL HISTORY: Left leg pain status post injury FINDINGS: Bony density adjacent to the anterior tibial spine could be the sequela of Inga-Schlatte r's disease or prior trauma. If the patient has point tenderness in this region then MRI would be rec ommended No acute fracture or dislocation noted
--- NOTE | 2023-12-20 12:00 | RAD REPORT ---
EXAM DESCRIPTION: RAD - Foot Left 3 View - 12/20/2023 10:11 am CLINICAL HISTORY: Left Foot pain FINDINGS: No fracture or dislocation is seen.
--- NOTE | 2023-12-20 12:01 | RAD REPORT ---
EXAM DESCRIPTION: RAD - Ankle Left 3 View -12/20/2023 10:12 am CLINICAL HISTORY: Left ankle pain status post injury FINDINGS: No fracture is seen. There is widening of the medial clear space which may indicate a ligamentous injury. If clinically in dicated further evaluation with MRI could obtained
== END ==
LOC: ER 09:22
DX: S93.412A Sprain of calcaneofibular ligament of left ankle, initial encounter (principal); S93.492A Sprain of other ligament of left ankle, initial encounter; S93.692A Other sprain of left foot, initial encounter; Z72.0 Tobacco use
CPT/HCPCS: 99284